=== PATIENT | male | born 1965 | race Caucasian/White ===

== ENCOUNTER → 2016-09-21 | Day surgery (SDC) | payer BC ==
[~2016-09-21] VITALS: Ht 167.6 cm; Wt 68.0 kg
[~2016-09-21] MED LIST: ACETAMINOPH W/CODEINE #3 TAB UD PO PRN; BACITRACIN OINT 30GM As Ordered ONE; EPINEPHrine 1MG/ML INJ 30ML MD-VIAL As Ordered ONE; GLYCOPYRROLATE INJ 0.2 MG/ML 2 ML VIAL As Ordered ONE; LIDOCAINE 2% INJ 100 MG/5 ML SDV (FOR ANES.) As Ordered ONE; LIDOCAINE W/EPINEPHRINE 1% 20ML VIAL As Ordered ONE; LR 1,000 ML IV ONE; LR 1,000 ML IV SCH; METHYLENE BLUE 0.5% (5MG/ML) 10 ML AMP (PROVAYBLUE)(Q9968 PER 1MG) As Ordered ONE; METOCLOPRAMIDE INJ 10MG/2ML VIAL (J2765) As Ordered ONE; MIDAZOLAM INJ 2 MG/2 ML VIAL (J2250) As Ordered ONE; NEOSTIGMINE 1MG/ML 5 ML SYRINGE (J2710) As Ordered ONE; ONDANSETRON 4MG/2ML VIAL (J2405) As Ordered ONE; ONDANSETRON 4MG/2ML VIAL (J2405) IV PRN; PROPOFOL 200 MG/20 ML VIAL As Ordered ONE; ROCURONIUM BROMIDE 50 MG/5 ML VIAL As Ordered ONE; dexameTHASONE 4 MG/ML 1ML VIAL (J1100) As Ordered ONE; fentaNYL 100 MCG/2 ML INJECTION (J3010) As Ordered ONE; fentaNYL 100 MCG/2 ML INJECTION (J3010) IV PRN
[2016-09-21 10:02] VITALS: BP 141/78
--- NOTE | 2016-09-21 11:37 | RO ---
DATE OF PROCEDURE: 09/21/2016 PREPROCEDURE DIAGNOSIS: Lesion on the nose. POSTPROCEDURE DIAGNOSIS: Lesion on the nose. OPERATIVE PROCEDURE: Excision of the lesion on the nose with open myofascial approach. SURGEON: German Anderson MD RESEARCH MANAGEMENT ASSOCIATE: ANESTHESIA: General. DESCRIPTION OF PROCEDURE: The patient has a lesion over the tip of the lower lateral cartilage on the right side. Under general anesthesia, I infiltrated the area. A columnar incision was made and bilateral rim incisions. I elevated the tissues off the dorsum of the nose. I found some soft tissue, which appeared to be normal. I think that what the patient was noticing was just the bend in the lateral and medial curve where the lower lateral cartilage met. I excised a small portion of that. Sutured with #4-0 Vicryl. I then closed the wound with #4-0 Vicryl and #5-0 nylon. The patient tolerated the procedure well and was transferred to the recovery room in excellent condition.
== END | disposition home or self-care (01) ==
LOC: M SDC 05:53
PROVIDERS: ATTEND Otolaryngology
DX: D14.0 Benign neoplasm of middle ear, nasal cavity and accessory sinuses (principal); F32.9 Major depressive disorder, single episode, unspecified; F17.210 Nicotine dependence, cigarettes, uncomplicated
CPT/HCPCS: 11440; 88305; J1100; J2250; J2405; J2710; J2765; J3010; Q9968

== ENCOUNTER → 2018-02-10 | Outpatient (REF) | payer BC ==
[2018-02-10 14:17] LABS: ALBUMIN 4.5 GM/DL (3.2-5.2); ALBUMIN/GLOBULIN RATIO 1.25 (1.00-1.93); ALKALINE PHOSPHATASE 70 U/L (45-117); ALT/SGPT 68 U/L (12-78); ANION GAP 8 MEQ/L (8-16); AST/SGOT 35 U/L (7-37); BILIRUBIN,TOTAL 0.7 MG/DL (0.2-1.0); BLOOD UREA NITROGEN 16 MG/DL (7-18); CALCIUM LEVEL 9.9 MG/DL (8.5-10.1); CARBON DIOXIDE LEVEL 26 MEQ/L (21-32); CHLORIDE LEVEL 104 MEQ/L (98-107); CREATININE FOR GFR 0.91 MG/DL (0.70-1.30); GLOMERULAR FILTRATION RATE > 60.0 (>56); GLUCOSE, FASTING 91 MG/DL (70-100); RHEUMATOID FACTOR QUANT < 10.0 IU/ML (<15.0); SODIUM LEVEL 138 MEQ/L (136-145); TOTAL PROTEIN 8.1 GM/DL (6.4-8.2)
[2018-02-10 14:25] LABS: FOLATE > 24.0 NG/ML; TOTAL 25(OH) VITAMIN D 28.3 NG/ML (30.0-100.0); VITAMIN B12 LEVEL 581 PG/ML
[2018-02-10 14:33] LABS: ERYTHROCYTE SEDIMENTATION RATE 4 mm/hr (0-20)
[2018-02-10 17:11] LABS: ESTIMATED AVERAGE GLUCOSE 114 MG/DL (60-110); HEMOGLOBIN A1c 5.6 %
[2018-02-11 14:35] LABS: ANTINUCLEAR ANTIBODIES DIRECT Negative (Negative)
== END ==
LOC: M LABNEURO 10:43
DX: E11.9 Type 2 diabetes mellitus without complications (principal); G40.909 Epilepsy, unspecified, not intractable, without status epilepticus
CPT/HCPCS: 82746